=== PATIENT | male | born 1975 | race African-American/Black ===

== ENCOUNTER 2018-09-18 22:37 | Inpatient (IN) ==
[2018-09-18] MEDS ORDERED: SODIUM CHLORIDE 0.9% 1,000 ML IV STA (23:15)
[2018-09-18 23:30] LABS: Basophils % 0.3 % (0.0-0.8); Eosinophils # 0.1 10*3/uL (0.0-0.87); Eosinophils % 0.9 % (0.00-10.9); Hematocrit 48.6 VOL% (42.0-52.0); Hemoglobin 16.3 GM/DL (14.0-18.0); Lymphocytes # 2.8 10*3/uL (1.4-4.0); Lymphocytes % 28.5 % (21.2-54.2); Mean Corpuscular HGB Conc 33.5 GM/DL (32-36); Mean Corpuscular Hemoglobin 27 PG (27-34); Mean Corpuscular Volume 81.8 FL (87-102); Mean Platelet Volume 10.2 FL (9.6-12.0); Monocytes # 0.3 10*3/uL (0.11-0.8); Monocytes % 2.9 % (1.7-12.7); Neutrophils # 6.4 10*3/uL (1.4-7.4); Neutrophils % 66.4 % (38.7-73.9); Platelet Count 209 T/CUMM (130-400); Red Blood Count 5.94 MC/CUMM (3.8-5.5); Red Cell Distribution Width 13.2 % (9.3-17.3); White Blood Count 9.7 T/CUMM (4-12)
[2018-09-18 23:39] LABS: INR 0.9; PT Patient Result 10.1 SECS; Partial Thromboplastin Time 25.7 SECS (0-40)
[2018-09-19 00:02] LABS: Apearance,Urine CLEAR (Clear); Bilirubin,Urine Negative (Negative); Blood, Urine Small mg/dL (Negative); Glucose,Urine (UA) Negative (Negative); Ketones,Urine Negative (Negative); Mucus,Urine Occasional /LPF (Occasional); Nitrite,Urine Negative (Negative); Protein,Urine Negative; RBC,Urine 1 /HPF (0-4); Urine Color Straw (Yellow); Urine Specific Gravity 1.005 (1.001-1.035); Urine Urobilinogen < 2.0 EU/DL (0.2-1.0); WBC,Urine 1 /HPF (0-6)
[2018-09-19 00:12] LABS: Barbiturates Screen,Urine Negative (Negative); Benzodiazepines Screen,Urine Negative (Negative); Cannabinoid Screen,Urine Negative (Negative); Opiate Screen,Urine Negative (Negative); Phencyclidine Screen,Urine Negative (Negative)
[2018-09-19 00:25] LABS: Alanine Aminotransferase 49 U/L (16-61); Albumin 3.8 G/DL (3.4-5.0); Alkaline Phosphatase 99 U/L (45-117); Amylase 64 U/L (25-115); Aspartate Amino Transferase 23 U/L (0-37); Bilirubin,Total < 0.39 MG/DL (0.2-1.0); Blood Urea Nitrogen 12 MG/DL (7-18); Calcium 8.7 MG/DL (8.5-10.1); Glucose 84 MG/DL (74-106); Potassium 3.7 MMOL/L (3.5-5.1); Sodium 143 MMOL/L (136-145); Total Protein 8.3 G/DL (6.4-8.3); Troponin I < 0.015 NG/ML (0.00-0.045)
[2018-09-19] MEDS ORDERED: THIAMINE INJ 100 MG, FOLIC ACID INJ 1 MG, MAGNESIUM SULF INJ 2 GM, MULTIVITAMIN INJ 10 ... IV ONE (00:33)
[2018-09-19] MEDS ORDERED: ACETAMINOPHEN 325 MG TABLET PO PRN (02:43)
[2018-09-19] MEDS ORDERED: ONDANSETRON 4 MG/2 ML VIAL IV PRN (02:43)
[2018-09-19] MEDS ORDERED: PIPERACILLIN/TAZOBACTAM 3,375 MG VIAL IV ONE (03:37)
[2018-09-19] MEDS: PIPERACILLIN/TAZOBACTAM 3,375 MG in SODIUM CHLORIDE 0.9% 100 ML IV SCH ×3 (03:40→21:10)
[2018-09-19] MEDS ORDERED: LORazepam 2 MG/1 ML VIAL IV PRN (03:50)
[2018-09-19] MEDS ORDERED: ALUMINUM/MAGNES/SIMETH MAX STR 30 ML UDCUP PO PRN (03:50)
[2018-09-19] MEDS ORDERED: NICOTINE 21 MG/24 HR PATCH TRANSDERM PRN (03:50)
[2018-09-19] MEDS ORDERED: BISACODYL 10 MG SUPP RECTAL PRN (03:50)
[2018-09-19] MEDS ORDERED: METHOCARBAMOL 500 MG TABLET PO PRN (04:12)
[2018-09-19] MEDS ORDERED: HydrOXYzine PAMOATE 25 MG CAPSULE PO PRN (04:12)
[2018-09-19] MEDS ORDERED: DICYCLOMINE 10 MG CAPSULE PO PRN (04:12)
[2018-09-19] MEDS: chlordiazePOXIDE 25 MG CAPSULE PO SCH ×4 (05:42→22:00)
[2018-09-19 05:59] LABS: Basophils % 0.3 % (0.0-0.8); Eosinophils # 0.2 10*3/uL (0.0-0.87); Eosinophils % 1.7 % (0.00-10.9); Hematocrit 44.6 VOL% (42.0-52.0); Hemoglobin 14.5 GM/DL (14.0-18.0); Immature Granulocytes % 0.8 %; Immature Granulocytes Absolute 0.07 #; Lymphocytes # 2.8 10*3/uL (1.4-4.0); Lymphocytes % 32.6 % (21.2-54.2); Mean Corpuscular HGB Conc 32.5 GM/DL (32-36); Mean Corpuscular Hemoglobin 27 PG (27-34); Mean Corpuscular Volume 82.4 FL (87-102); Mean Platelet Volume 11.6 FL (9.6-12.0); Monocytes # 0.4 10*3/uL (0.11-0.8); Monocytes % 4.8 % (1.7-12.7); Neutrophils # 5.2 10*3/uL (1.4-7.4); Neutrophils % 59.8 % (38.7-73.9); Platelet Count 135 T/CUMM (130-400); Red Blood Count 5.41 MC/CUMM (3.8-5.5); Red Cell Distribution Width 13.3 % (9.3-17.3); White Blood Count 8.6 T/CUMM (4-12)
[2018-09-19 06:42] LABS: Calcium 7.7 MG/DL (8.5-10.1); Osmolality,Calculated 280.1 MOS/KG (273-304); Potassium 4.5 MMOL/L (3.5-5.1)
[2018-09-19] MEDS: FOLIC ACID 1 MG TABLET PO SCH (09:53)
[2018-09-19] MEDS: MULTIVITAMIN (CENTRUM) TABLET PO SCH (09:53)
[2018-09-19] MEDS: THIAMINE 100 MG TABLET PO SCH (09:54)
[2018-09-19] MEDS: VANCOMYCIN INJ 1,500 MG in SODIUM CHLORIDE 0.9% 500 ML IV SCH ×2 (09:58→17:50)
[2018-09-19 13:29] LABS: Apearance,Urine CLEAR (Clear); Bilirubin,Urine Negative (Negative); Blood, Urine Negative (Negative); Glucose,Urine (UA) Negative (Negative); Ketones,Urine Negative (Negative); Nitrite,Urine Negative (Negative); Protein,Urine Negative; RBC,Urine 1 /HPF (0-4); Squamous Epithelial Cell,Urine Occasional /HPF (0-10); Urine Color Straw (Yellow); Urine Specific Gravity 1.027 (1.001-1.035); Urine Urobilinogen < 2.0 EU/DL (0.2-1.0); WBC,Urine <1 /HPF (0-6)
[2018-09-20] MEDS: VANCOMYCIN INJ 1,500 MG in SODIUM CHLORIDE 0.9% 500 ML IV SCH ×3 (01:12→20:39)
[2018-09-20] MEDS: chlordiazePOXIDE 25 MG CAPSULE PO SCH ×3 (04:56→20:38)
[2018-09-20] MEDS: PIPERACILLIN/TAZOBACTAM 3,375 MG in SODIUM CHLORIDE 0.9% 100 ML IV SCH ×3 (04:58→22:50)
[2018-09-20 05:09] LABS: Basophils % 0.5 % (0.0-0.8); Eosinophils # 0.2 10*3/uL (0.0-0.87); Eosinophils % 2.3 % (0.00-10.9); Hematocrit 41.3 VOL% (42.0-52.0); Hemoglobin 13.7 GM/DL (14.0-18.0); Immature Granulocytes % 0.6 %; Immature Granulocytes Absolute 0.04 #; Lymphocytes # 2.1 10*3/uL (1.4-4.0); Lymphocytes % 31.7 % (21.2-54.2); Mean Corpuscular HGB Conc 33.2 GM/DL (32-36); Mean Corpuscular Hemoglobin 27 PG (27-34); Mean Corpuscular Volume 81.6 FL (87-102); Mean Platelet Volume 10.7 FL (9.6-12.0); Monocytes # 0.4 10*3/uL (0.11-0.8); Monocytes % 6.5 % (1.7-12.7); Neutrophils # 3.9 10*3/uL (1.4-7.4); Neutrophils % 58.4 % (38.7-73.9); Platelet Count 179 T/CUMM (130-400); Red Blood Count 5.06 MC/CUMM (3.8-5.5); Red Cell Distribution Width 13.4 % (9.3-17.3); White Blood Count 6.6 T/CUMM (4-12)
[2018-09-20 05:32] LABS: Calcium 8.5 MG/DL (8.5-10.1); Osmolality,Calculated 282.1 MOS/KG (273-304); Potassium 4.1 MMOL/L (3.5-5.1)
[2018-09-20] MEDS ORDERED: SODIUM CHLORIDE 0.9% 1,000 ML IV ONE (09:18)
[2018-09-20] MEDS: MULTIVITAMIN (CENTRUM) TABLET PO SCH (09:59)
[2018-09-20] MEDS: FOLIC ACID 1 MG TABLET PO SCH (09:59)
[2018-09-20] MEDS: THIAMINE 100 MG TABLET PO SCH (09:59)
[2018-09-20] MEDS: SODIUM CHLORIDE 0.9% 1,000 ML IV SCH ×2 (14:07→15:41)
[2018-09-21] MEDS: VANCOMYCIN INJ 1,500 MG in SODIUM CHLORIDE 0.9% 500 ML IV SCH (02:03)
[2018-09-21] MEDS: SODIUM CHLORIDE 0.9% 1,000 ML IV SCH (02:36)
[2018-09-21] MEDS: chlordiazePOXIDE 25 MG CAPSULE PO SCH (04:54)
[2018-09-21] MEDS: PIPERACILLIN/TAZOBACTAM 3,375 MG in SODIUM CHLORIDE 0.9% 100 ML IV SCH (04:55)
[2018-09-21] MEDS: THIAMINE 100 MG TABLET PO SCH (09:39)
[2018-09-21] MEDS: FOLIC ACID 1 MG TABLET PO SCH (09:39)
[2018-09-21] MEDS: MULTIVITAMIN (CENTRUM) TABLET PO SCH (09:39)
[2018-09-21 12:22] VITALS: BP 125/79
[2018-09-21] MEDS ORDERED: VANCOMYCIN INJ 1,500 MG in SODIUM CHLORIDE 0.9% 500 ML IV SCH (16:00)
== END 2018-09-21 12:30 | disposition home or self-care (01) | DRG 897 ==
LOC: EDUNIT# → EDBD → N.ED 22:37 → N.EDINP 09-19 02:18 → N.4E 09-19 05:05
PROVIDERS: ADMIT Internal Medicine; ATTEND Internal Medicine